=== PATIENT | male | born 1950 | race Hispanic/Latino ===

== ENCOUNTER 2018-02-25 06:16 | Day surgery (SDC) | payer OTHER ==
[~2018-02-25] VITALS: Ht 170.2 cm; Wt 76.7 kg
[2018-02-25] VITALS (18 sets, daily range): BP systolic 139–176; BP diastolic 70–85
[~2018-02-25 06:16] MED LIST: ROPIVACAINE 0.5% 5MG/ML 30ML IJ ONE
[2018-02-25 07:38] LABS: BASOPHILS % (AUTO) 0.9 % (0.0-5.0); EOSINOPHILS % (AUTO) 3.6 % (0.0-8.0); HEMATOCRIT 50.3 % (42-54); LYMPHOCYTES % (AUTO) 30.6 % (21.0-51.0); MEAN CORPUSCULAR HEMOGLOBIN 31.6 pg (27.0-33.0); MEAN CORPUSCULAR HGB CONC 34.1 g/dL (32.0-36.0); MEAN CORPUSCULAR VOLUME 92.5 fL (79-99); MONOCYTES % (AUTO) 7.8 % (3.0-13.0); NEUTROPHILS % (AUTO) 57.1 % (40.0-77.0); NUCLEATED RED BLOOD CELLS 0.1 % (0.0-0.19); PLATELET COUNT (AUTO) 205 K/uL (130-400); RED BLOOD CELL COUNT(AUTO) 5.44 MIL/uL (4.50-6.20); RED CELL DISTRIBUTION WIDTH 13.2 % (11.0-15.5); WHITE BLOOD COUNT (AUTO) 7.2 K/uL (4.8-10.8)
[2018-02-25 07:53] LABS: CREATININE 0.9 mg/dL (0.5-1.5); POTASSIUM 5.1 mmol/L (3.5-5.1)
[2018-02-25] MEDS ORDERED: LACTATED RINGERS 1000ML 1,000 ML IV ONE ×2 (08:06→09:44)
[2018-02-25] MEDS ORDERED: CEFAZOLIN SODIUM 1 GM VIAL ONE (08:40)
[2018-02-25] MEDS ORDERED: ATOR10TA69 PO (09:16)
[2018-02-25] MEDS ORDERED: AMLO5TAB9 PO (09:16)
[2018-02-25] MEDS ORDERED: EPINEPHRINE 1 MG/ML 30ML VIAL IJ ONE (10:58)
[2018-02-25] MEDS ORDERED: PROPOFOL 10 MG/ML 20ML VIAL IV ONE (12:03)
[2018-02-25] MEDS ORDERED: ROCURONIUM 10MG/1ML SYR 10 MG/ML ML ONE ×2 (12:03→13:01)
[2018-02-25] MEDS ORDERED: DEXAMETHASONE SOD PHOSPHATE 10MG/ML 1ML VIAL ONE (14:02)
[2018-02-25] MEDS ORDERED: MIDAZOLAM HCL 1 MG/ML 2ML VIAL ONE (14:02)
[2018-02-25] MEDS ORDERED: ONDANSETRON HCL 4 MG/2 ML VIAL ONE (14:02)
[2018-02-25] MEDS ORDERED: FENTANYL CITRATE PF 50 MCG/1 ML 2ML VIAL ONE (14:03)
[2018-02-25] MEDS ORDERED: NAPR-1023 PO (14:18)
[2018-02-25] MEDS ORDERED: HYDR-4457 PO (14:18)
[2018-02-25] MEDS ORDERED: CEPH500B PO (14:18)
== END 2018-02-25 16:20 | disposition home or self-care (01) ==
LOC: DAH 06:16
PROVIDERS: ATTEND Orthopaedic Surgery
DX: M75.101 Unspecified rotator cuff tear or rupture of right shoulder, not specified as traumatic (principal); M75.41 Impingement syndrome of right shoulder; M19.011 Primary osteoarthritis, right shoulder; I10 Essential (primary) hypertension; Z98.890 Other specified postprocedural states; Z82.49 Family history of ischemic heart disease and other diseases of the circulatory system; Z79.899 Other long term (current) drug therapy; G89.29 Other chronic pain
CPT/HCPCS: 29824; 29826; 29827; 36415; 80048; 85025; A4218; A4565; A4600; A4649 ×4; A4930 ×2; A6204; C1713; G0168; J0171; J0690; J1100; J2250; J2405; J2704; J2795; J3010; J7030; J7120 ×2

== ENCOUNTER → 2021-04-30 | Outpatient (CLI) | payer OTHER ==
[~2021-04-30] MED LIST changes: +AMLO-257 PO; +ATOR10TA69 PO; +CEPH500B PO; +HYDR-4457 PO; +NAPR-1023 PO; -ROPIVACAINE 0.5% 5MG/ML 30ML IJ ONE
== END | disposition home or self-care (01) ==
LOC: RAH 08:43
PROVIDERS: ATTEND Orthopaedic Surgery
DX: M75.102 Unspecified rotator cuff tear or rupture of left shoulder, not specified as traumatic (principal); M19.012 Primary osteoarthritis, left shoulder; M25.412 Effusion, left shoulder
CPT/HCPCS: 73221